=== PATIENT | female | born 1950 | race Caucasian/White ===

== ENCOUNTER 2020-06-24 10:07 | Emergency (ER) | payer BC ==
[~2020-06-24] VITALS: Ht 170.2 cm; Wt 83.9 kg
[2020-06-24 10:10] VITALS: BP_SYST 147
[2020-06-24] MEDS: methylPREDNISolone SOD SUCC/PF 62.5 MG/ML VIAL IVP ONE (10:19)
[2020-06-24] MEDS: NACL 0.9% 1,000 ML IV ONE (10:19)
[2020-06-24] MEDS: DIPHENHYDRAMINE INJ 50 MG/ML VIAL IVP ONE (10:20)
[2020-06-24 12:18] VITALS: BP_SYST 142
== END 2020-06-24 12:19 | disposition home or self-care (01) ==
LOC: SED 10:07
DX: T78.2XXA Anaphylactic shock, unspecified, initial encounter (principal); J45.909 Unspecified asthma, uncomplicated; Z88.0 Allergy status to penicillin; Z88.6 Allergy status to analgesic agent; Z88.8 Allergy status to other drugs, medicaments and biological substances; X58.XXXA Exposure to other specified factors, initial encounter
CPT/HCPCS: 96361; 96374; 99283; J2930; J7030; J1200

== ENCOUNTER 2020-06-26 09:22 | Emergency (ER) | payer BC ==
[~2020-06-26] VITALS: Ht 170.2 cm; Wt 83.9 kg
[2020-06-26 09:28] VITALS: BP_SYST 138
[2020-06-26] MEDS ORDERED: IPRATROPIUM/ALBUTEROL SULFATE 3 ML AMPUL.NEB (DUONEB) INH ONE (09:45)
[2020-06-26] MEDS ORDERED: cefTRIAXone 1 GM IVPB PREMIX 50 ML IV ONE (09:45)
[2020-06-26] MEDS ORDERED: methylPREDNISolone SOD SUCC/PF 62.5 MG/ML VIAL IVP ONE (09:45)
[2020-06-26 11:15] VITALS: BP_SYST 133
== END 2020-06-26 11:15 | disposition home or self-care (01) ==
LOC: SED 09:22
DX: L03.114 Cellulitis of left upper limb (principal); J45.901 Unspecified asthma with (acute) exacerbation; Z88.6 Allergy status to analgesic agent; Z88.0 Allergy status to penicillin; Z88.1 Allergy status to other antibiotic agents; Z88.8 Allergy status to other drugs, medicaments and biological substances
CPT/HCPCS: 36415; 87040; 94640; 96365; 96375; 99284; J0696; J2930